=== PATIENT | female | born 1955 | race Caucasian/White ===

== ENCOUNTER 2020-08-21 07:34 | Outpatient (CLI) | payer BC ==
[2020-08-21] MEDS ORDERED: Iopamidol-370 76% 500 ML 1 ML ONE (12:05)
== END 2020-08-21 07:35 | disposition home or self-care (01) ==
LOC: BICCT 07:34
PROVIDERS: ATTEND Internal Medicine
DX: K57.92 Diverticulitis of intestine, part unspecified, without perforation or abscess without bleeding (principal); R32 Unspecified urinary incontinence; D12.6 Benign neoplasm of colon, unspecified
CPT/HCPCS: 74177; 82565; Q9967